=== PATIENT | male | born 1960 | race Caucasian/White ===

== ENCOUNTER → 2018-10-27 | Outpatient (CLI) | payer BC ==
--- NOTE | 2018-10-29 13:16 | MR ---
EXAMINATION TYPE: MR iac wo con DATE OF EXAM: 10/27/2018 COMPARISON: NONE HISTORY: Vertigo TECHNIQUE: Multiplanar, multisequence imaging of the brain and brainstem is performed without IV cont rast. Acoustic nerve disorder protocol. Exam performed without IV contrast as patient refused contras t injection. FINDINGS: Diffusion weighted images demonstrate no evidence of a recent infarct or other diffusion abnormality. There is no worrisome extra-axial fluid collection. There is mild ventricular and sulcal prominence. There are scattered foci of T2 hyperintensity seen throughout the white matter bilaterally. Approxima tely 10 lesions are identified predominantly in subcortical locations. Midline structures demonstrate normal morphology. The craniocervical junction appears within normal limits. Normal vascular flow voids are present. Mild mucosal thickening involving ethmoid sinuses sree aterally is present. Globes are intact bilaterally. There is increased fluid signal left mastoid air cells. Vestibulocochlear complexes are symmetric and felt within normal limits. IMPRESSION: Suboptimal study without IV contrast, possible left-sided mastoiditis, correlate clinical ly. Background mild diffuse cerebral atrophy and chronic small vessel ischemic change with mild chron ic ethmoid sinus disease noted.
== END | disposition home or self-care (01) ==
LOC: RADMRIMAIN 16:44
PROVIDERS: ATTEND Otolaryngology
DX: G31.9 Degenerative disease of nervous system, unspecified (principal); I67.82 Cerebral ischemia
CPT/HCPCS: 70551

== ENCOUNTER → 2020-11-28 | Outpatient (CLI) | payer BC ==
--- NOTE | 2020-11-28 11:11 | XR ---
EXAMINATION TYPE: XR chest 2V DATE OF EXAM: 11/28/2020 COMPARISON: NONE TECHNIQUE: PA and lateral views submitted. HISTORY: Prostate cancer FINDINGS: The lungs are clear and there is no pneumothorax, pleural effusion, or focal pneumonia. IMPRESSION: 1. No acute process.
--- NOTE | 2020-11-28 16:02 | NM ---
EXAMINATION TYPE: NM bone scan whole body DATE OF EXAM: 11/28/2020 COMPARISON: CT scan 11/28/2020 HISTORY: Prostate cancer Delayed whole-body scanning was performed following the injection of 23.5 mCi Tc 99m MDP. Images acq uired 3 hours post injection. FINDINGS: There is intense abnormal uptake involving both shoulders greater on the left. Recommend follow-up x- ray. Abnormal uptake involving the maxilla compatible with periodontal disease. Abnormal uptake involving the sternoclavicular joints likely post arthritic. Faint abnormal uptake throughout the thoracic spine and lower lumbar spine appears most likely degene rative in comparison to the CAT scan. Punctate tiny hyperdensities and sclerotic foci involving the l eft iliac bone, and a few lumbar segments are nonspecific and should be followed given the measure 1 to 2 mm. No corresponding abnormal uptake by bone scan. Abnormal uptake involving the knees greater on the left likely arthritic. IMPRESSION: 1. Abnormal uptake involving the shoulders bilaterally greater on the left. This appears out of propo rtion to the chest x-ray of 11/28/2020. Therefore, recommend dedicated shoulder series to assess for u nderlying metastases versus post arthritic changes. 2. There are multiple 1 to 2 mm sclerotic densities seen involving the pelvis and lower lumbar spine which are too small to characterize and may represent benign etiology. Given the patient's history of prostate cancer dictation be monitored on short-term basis. There is no corresponding bone scan abno rmality to these locations however due to their small size of a may not demonstrate uptake by bone sc an.
--- NOTE | 2020-11-28 20:46 | CT ---
EXAMINATION TYPE: CT abdomen pelvis w con DATE OF EXAM: 11/28/2020 COMPARISON: None HISTORY: Prostate Cancer CT DLP: 1806 mGycm Automated exposure control for dose reduction was used. TECHNIQUE: Helical acquisition of images was performed from the lung bases through the pelvis. CONTRAST: Performed with Oral Contrast and with IV Contrast, patient injected with 100 ml mL of Isovue 300. FINDINGS: LUNG BASES: No significant abnormality is appreciated. LIVER/GB: A 1.3 cm density in the posteromedial right lobe of the liver with some subtle peripheral n odular enhancement is indeterminate and may represent a hemangioma. No biliary ductal dilatation. Th e portal veins are patent. Gallbladder is unremarkable. PANCREAS: No significant abnormality is seen. SPLEEN: Not enlarged. Splenule. ADRENALS: No significant abnormality is seen. KIDNEYS: A 2.5 cm ovoid hypodensity arising from the posterior-inferior aspect of the left kidney artemio sures slightly higher than fluid attenuation and likely represents a cyst. No hydronephrosis. FREE AIR: No free air is visualized. RETROPERITONEAL ADENOPATHY: None visualized REPRODUCTIVE ORGANS: No significant abnormality is seen URINARY BLADDER: No significant abnormality is seen. PELVIC ADENOPATHY: None visualized. OSSEOUS STRUCTURES: No significant abnormality is seen. BOWEL: No significant abnormality is seen. OTHER: Lipomatous hypertrophy of the left inguinal canal. Small fat-containing intramuscular lipoma o f the left lateral abdominal musculature. Prostatomegaly. Diastases recti with a small fat-containing umbilical hernia. IMPRESSION: 1. No acute process in the abdomen or pelvis. 2. Secondary findings as above.
== END | disposition home or self-care (01) ==
LOC: RADNMMAIN 10:45
PROVIDERS: ATTEND Urology
DX: C61 Malignant neoplasm of prostate (principal); Z85.46 Personal history of malignant neoplasm of prostate
CPT/HCPCS: 71046; 74177; 78306; A9503; Q9967

== ENCOUNTER → 2020-12-24 | Outpatient (CLI) | payer BC ==
[2020-12-24 16:50] LABS: Basophils # (A) 0.1 k/uL (0-0.2); Basophils % (A) 0 %; Eosinophils # (A) 0.3 k/uL (0-0.7); Eosinophils % (A) 3 %; HGB 16.8 gm/dL (13.0-17.5); Lymphocytes # (A) 3.8 k/uL (1.0-4.8); Lymphocytes % (A) 29 %; MCHC 35.1 g/dL (31.0-37.0); MCV 94.2 fL (80.0-100.0); Mean Platelet Volume 7.4; Monocytes # (A) 0.6 k/uL (0-1.0); Monocytes % (A) 5 %; Neutrophils # (A) 7.8 k/uL (1.3-7.7); Neutrophils % (A) 61 %; Platelet Count 252 k/uL (150-450); RDW 12.6 % (11.5-15.5); WBC 12.8 k/uL (3.8-10.6)
[2020-12-24 16:54] LABS: Appearance,Urine Clear (Clear); Bilirubin,Urine Negative (Negative); Blood,Urine Negative (Negative); Color,Urine Yellow; Glucose,Urine (UA) Negative (Negative); Ketones,Urine Negative (Negative); Leukocyte Esterase,Urine Negative (Negative); Nitrite,Urine Negative (Negative); PH, Urine 5.5 (5.0-8.0); Protein,Urine Negative (Negative); Specific Gravity,Urine 1.022 (1.001-1.035); Urobilinogen,Urine <2.0 mg/dL (<2.0)
[2020-12-24 16:59] LABS: African American GFR (CKD) >90 (>60 ml/min/1.73 sqM); Anion Gap 11 mmol/L; Blood Urea Nitrogen 16 mg/dL (9-20); Carbon Dioxide 23 mmol/L (22-30); Chloride 107 mmol/L (98-107); Glucose 105 mg/dL (74-99); Non-African American GFR(CKD) 87 (>60 ml/min/1.73 sqM); Potassium 4.5 mmol/L (3.5-5.1); Sodium 141 mmol/L (137-145)
--- NOTE | 2020-12-25 08:27 | XR ---
EXAMINATION TYPE: XR chest 2V DATE OF EXAM: 12/24/2020 COMPARISON: 11/28/2020 TECHNIQUE: PA and lateral views submitted. HISTORY: Presurgical FINDINGS: The lungs are clear and there is no pneumothorax, pleural effusion, or focal pneumonia. Heart size normal. No overt failure. Hyperinflation of the lungs. Correlate for COPD. IMPRESSION: 1. No acute process.
== END | disposition home or self-care (01) ==
LOC: LABPAT 16:01
PROVIDERS: ATTEND Urology
DX: Z01.812 Encounter for preprocedural laboratory examination (principal); C61 Malignant neoplasm of prostate; R35.0 Frequency of micturition
CPT/HCPCS: 36415; 71046; 80048; 81003; 85025; 87086

== ENCOUNTER 2021-01-01 09:40 | Day surgery (SDC) | payer BC ==
[2020-12-29 08:30] VITALS: BMI 30.5
--- NOTE | 2020-12-31 18:42 | P.HPIHPCON ---
History of Present Illness H&P Date: 01/01/21 Chief Complaint: Prostate Cancer This is a 60-year-old male with history of [place] 7 (4+3) prostate cancer. Options of robotic prostatectomy, and radiation were discussed with him in detail. Discussed with him the risk and the benefit of each approach. He agreed to proceed with a robotic-assisted laparoscopic radical prostatectomy with pelvic lymph node dissection. Discussed with him the risk which includes but not limited to bleeding, infection, injury to nearby organs, which includes bladder, rectum, ureter, blood vessels and nerves. Discussed also with him risk from anesthesia which includes but not limited to heart attack, stroke, blood clots and even loss of life. He understood all the risk and agreed to proceed with robotic-assisted laparoscopic prostatectomy with pelvic lymph node dissection Consent for Procedure: I have explained the operation/procedure to the patient, including the risks, benefits, side effects, alternative therapies (including not receiving the proposed treatment or service), the likelihood of the patient achieving his/her goals, and potential recuperation problems for the procedure/sedation/analgesia, as well as any blood products, if indicated. I also explained to the patient the risks, benefits and side effects of the alternatives, as well as the risks related to not receiving the proposed procedure, care, treatment, or services. Past Medical History Past Medical History: Cancer, GERD/Reflux, Hypertension Additional Past Medical History / Comment(s): Current Prostate Cancer. History of Any Multi-Drug Resistant Organisms: None Reported Past Surgical History: No Surgical Hx Reported Additional Past Surgical History / Comment(s): [place] teeth extracted. Past Anesthesia/Blood Transfusion Reactions: No Reported Reaction Past Psychological History: No Psychological Hx Reported Smoking Status: Former smoker Past Alcohol Use History: Rare Additional Past Alcohol Use History / Comment(s): Quit smoking 20+ yrs ago. Past Drug Use History: None Reported - Past Family History Mother Family Medical History: No Reported History Medications and Allergies Home Medications Medication Instructions Recorded Confirmed Type Levocetirizine Dihydrochloride 5 mg PO HS 12/29/20 12/29/20 History [Xyzal] Losartan Potassium 100 mg PO QAM 12/29/20 12/29/20 History Magnesium 250 mg PO HS 12/29/20 12/29/20 History Motrin (Unknown Dose) 1 tab PO DIRECTED PRN 12/29/20 History Multivitamins, Thera [Multivitamin 1 tab PO DAILY 12/29/20 12/29/20 History (formulary)] Omeprazole 20 mg PO HS 12/29/20 12/29/20 History Allergies Allergy/AdvReac Type Severity Reaction Status Date / Time No Known Allergies Allergy Verified 12/29/20 08:22 Surgical - Exam - General well developed, well nourished - Respiratory normal expansion, normal respiratory effort - Psychiatric oriented to time, oriented to person, oriented to place Assessment and Plan Assessment: 60 yo hx of hallie 7 prostate cancer -OR for robotic prostatectomy and PLND
[~2021-01-01 09:40] MED LIST: DEXAMETHASONE SOD PHOSPHATE 4 MG/ML 1 ML VIAL IV ONE; HEPARIN SODIUM,PORCINE/PF 5,000 UNIT/0.5 ML SYRINGE SQ PRN; HYDROmorphone 0.5 MG/0.5 ML SYRINGE IVP PRN; ONDANSETRON 4 MG/2 ML VIAL IVP ONE
[2021-01-01] MEDS: LACTATED RINGERS 1,000 ML IV SCH ×2 (10:40→12:43)
[2021-01-01] MEDS ORDERED: MIDAZOLAM 2 MG/2 ML VIAL IV ONE (11:05)
[2021-01-01] MEDS ORDERED: fentaNYL (PF) 50 MCG/ML 2 ML AMP IV ONE (11:05)
--- NOTE | 2021-01-01 11:22 | P.ANPRN ---
Procedure Note - Anesthesia - Nerve Block Performed Bilateral Erector Spinae Single Time Out Performed: Yes Date of Procedure: 01/01/21 Procedure Start Time: 11:04 Procedure Stop Time: 11:12 Location of Patient: PreOp Indication: Requested by Surgeon (nini abernathy) Specifically requested for management of pain by DrShira: Boris Farfan Sedation Type: Sedate with meaningful contact maintained Preparation: Sterile Prep Position: Prone Needle Types: Pajunk Needle Gauge: 21 Ultrasound used to visualize needle placement: Yes Ultrasound used to observe medication spread: Yes Injectate: 0.5% Ropivacaine (see comment for volume) (15 ml +15 ml NS +2 mg Dexamethason per side) Blood Aspirated: No Pain Paresthesia on Injection Noted: No Resistance on Injection: Normal Image Stored and Saved: Yes Events: Uneventful and Well Tolerated
[2021-01-01] MEDS ORDERED: BUPIVACAINE (PF) 0.5% 30 ML VIAL SQ ONE ×2 (12:33)
[2021-01-01] MEDS ORDERED: KETOROLAC 15 MG/ML 1 ML VIAL ONE (12:38)
[2021-01-01] MEDS ORDERED: ROCURONIUM 10 MG/ML (5 ML VIAL) IV ONE (12:38)
[2021-01-01] MEDS ORDERED: LIDOCAINE 1% INJ 10MG/ML (20 ML MDV) ONE (12:38)
[2021-01-01] MEDS ORDERED: SUCCINYLCHOLINE CHLORIDE VIAL 200 MG/10 ML VIAL IV ONE (12:38)
[2021-01-01] MEDS ORDERED: SODIUM CHLORIDE 0.9% (PF) 10 ML VIAL ONE (12:38)
[2021-01-01] MEDS ORDERED: ROPIVACAINE 5 MG/ML 30 ML VIAL ONE (12:38)
[2021-01-01] MEDS ORDERED: GLYCOPYRROLATE 0.2 MG/ML 2 ML VIAL ONE (12:38)
[2021-01-01] MEDS ORDERED: DEXAMETHASONE SOD PHOSPHATE 4 MG/ML 1 ML VIAL ONE (12:38)
[2021-01-01] MEDS ORDERED: HEPARIN SODIUM,PORCINE 5,000 UNIT/ML 1 ML VIAL ONE (12:38)
[2021-01-01] MEDS ORDERED: MIDAZOLAM 2 MG/2 ML VIAL ONE (12:38)
[2021-01-01] MEDS ORDERED: HYDROmorphone (PF) 1 MG/ML ONE (12:38)
[2021-01-01] MEDS ORDERED: NEOSTIGMINE 1 MG/ML 10 ML VIAL ONE (12:38)
[2021-01-01] MEDS ORDERED: PROPOFOL 10 MG/ML 20 ML VIAL IV ONE (12:38)
[2021-01-01] MEDS ORDERED: fentaNYL (PF) 50 MCG/ML 2 ML AMP ONE (12:38)
[2021-01-01] MEDS ORDERED: HYDROcodone/APAP 5-325MG 1 EACH TAB PO PRN (12:40)
[2021-01-01] MEDS ORDERED: LACTATED RINGERS 1,000 ML IV ONE (17:00)
--- NOTE | 2021-01-01 17:17 | P.OP ---
Date of Procedure: 01/01/21 Preoperative Diagnosis: Prostate cancer Postoperative Diagnosis: Same Procedure(s) Performed: Robotic prostatectomy, pelvic lymph node dissection Implants: None Anesthesia: GHAZAL Surgeon: Boris Farfan Estimated Blood Loss (ml): 100 Pathology: other (Bilateral pelvic lymph nodes, prostate and seminal vesicles, right pelvic lymph node for frozen) Disposition: PACU Indications for Procedure: This is a 60-year-old male with history of [place] 7 (4+3) prostate cancer. Options of robotic prostatectomy, and radiation were discussed with him in detail. Discussed with him the risk and the benefit of each approach. He agreed to proceed with a robotic-assisted laparoscopic radical prostatectomy with pelvic lymph node dissection. Discussed with him the risk which includes but not limited to bleeding, infection, injury to nearby organs, which includes bladder, rectum, ureter, blood vessels and nerves. Discussed also with him risk from anesthesia which includes but not limited to heart attack, stroke, blood clots and even loss of life. He understood all the risk and agreed to proceed with robotic-assisted laparoscopic prostatectomy with pelvic lymph node dissectio Operative Findings: uncomplicated robotic prostatectomy Description of Procedure: After preoperative antibiotics were started, the patient was taken to the operating room. Anesthesia was induced and the patient was placed in supine position, with adequate padding of the pressure points, shoulders, back, legs and arms. He was then prepped and draped in the standard fashion. A critical pause was performed using two patient identifiers. A 16F najera catheter was placed to gravity drainage. A pneumo-peritoneum was created with placement of a Veress needle to 20 mm Hg without complication, and a 8 Fr trocar was placed above the umbillicus. Under direct vision a 8mm robotic ports was placed lateral to each rectus slightly below the camera port. The left iliac fossa 8mm port was placed. The right teacher assistant right iliac fossa 12mm port and right paramedian 5mm portwere placed. After the patient was placed in the trendelenberg position, the robot was then docked to the 8mm robotic ports and then each robotic arm and tower was checked in relation to the patient's legs and hands to avoid inadvertent compression. The peritoneal cavity was inspected. Patient had adhesion along the right lower quadrant was taken down sharply An inverted U-shaped incision began laterally to the left medial umbilical ligament and extended high across the midline to the right umbilical ligament. The limbs of the "U" extended to the level of the vasa on both sides. We next developed the preperitoneal space and the space of Retzius. Cautery was used to dissected the bladder away from the prostate. After the anterior bladder neck was incised and the bladder entered the the posterior bladder neck was exposed and the ureteral orifces identified. The posterior bladder neck was then incised and dissected away from the prostate. The vas and the seminal vesicles were now exposed and dissected to their insertions into the prostate and were not spared. Of note the right seminal vesicle was thickened, it was difficult to dissect. The posterior layer of the Denonvillier's fascia was incised to enter rito the plane between prostate and perirectal fat. Each lateral pedicle was controlled with clips and cautery for hemostasis. No nerve sparing was performed bilaterally. The puboprostatic ligament was incised where it inserted into the apex of the prostate and a plane between urethra and dorsal venous complex developed to expose the anterior urethral surface. The anterior wall of the urethra was transected with the cut setting a few millimeters distal to the apex of the prostate. The dorsal vein was ligated using 3-0 V lock bilateral obturator and external iliac lymph node packets were carefully dissected after careful visualization of the hypogastric artery and obturator nerve. Note patient had an enlarged right sided pelvic lymph node, this was sent to pathology came back negative for carcinoma. There was careful attention paid to hemostasis with judicious use of cautery. The urethrovesical anastomosis was performed . the posterior denovillers was reapproximated using 3-0 V lock. A 6 and 6 inch 3-0 V-Lock suture was used to anastomose the urethra and bladder, starting at the 6:00 posterior position. Mucosa was secured in every stitch, to ensure a mucosa to mucosa anastomosis. The stitch was regularly cinched and the anastomosis tightened. Care was taken to not violate the ureteral orifices. The Najera catheter was advanced, the bladder filled, and the anastomosis was tested, as described above. Anastomsis was watertight at 100 mL The periumbilical fascia was closed with 1-0-PDS suture in figure of 8 fashion. All ports were closed with a subcuticular 4-0 monocryl and Dermabond. Sponge, instrument, and needle counts were correct at the end of the case x2. All specimens including prostate and lymph nodes were sent to pathology for diagnosis and will be available in a week. The patient tolerated the surgery well and without complication. He awoke without difficulty and was taken to the recovery room in stable conditio
[2021-01-01] MEDS: D5-0.45% NACL WITH KCL 20MEQ/L 1,000 ML IV SCH (20:26)
[2021-01-01] MEDS: KETOROLAC 15 MG/ML 1 ML VIAL IVP SCH (20:27)
[2021-01-01] MEDS: HEPARIN SODIUM,PORCINE/PF 5,000 UNIT/0.5 ML SYRINGE SQ SCH (20:28)
[2021-01-01] MEDS ORDERED: LORATADINE 10 MG TAB PO SCH (21:00)
[2021-01-02] MEDS: KETOROLAC 15 MG/ML 1 ML VIAL IVP SCH ×3 (00:57→13:19)
[2021-01-02 01:22] VITALS: TEMP 98.6
[2021-01-02] MEDS: D5-0.45% NACL WITH KCL 20MEQ/L 1,000 ML IV SCH ×2 (02:24→03:45)
[2021-01-02] MEDS: HEPARIN SODIUM,PORCINE/PF 5,000 UNIT/0.5 ML SYRINGE SQ SCH ×2 (03:45→13:14)
[2021-01-02 07:33] VITALS: BP 136/76; PULSE 107; RESP 18
[2021-01-02] MEDS ORDERED: LOSARTAN 50 MG TAB PO SCH (09:00)
[2021-01-02] MEDS: LACTATED RINGERS 1,000 ML IV SCH (11:38)
== END 2021-01-02 13:53 | disposition home or self-care (01) ==
LOC: OR 09:40 → 4SSUR 17:23 → OR 01-02 13:53
PROVIDERS: ATTEND Urology
DX: C61 Malignant neoplasm of prostate (principal); K21.9 Gastro-esophageal reflux disease without esophagitis; I10 Essential (primary) hypertension; Z87.891 Personal history of nicotine dependence; Z79.899 Other long term (current) drug therapy
CPT/HCPCS: 38571; 94760; 64999; 76942; 86900; 86901; 86850; J2250; J0330; J1644 ×3; J1100; J2710; J0690; J2405; J2001; J3010; J1170; J2795; J1885 ×2; J2704; 88305; 88307; 88309; 88331

== ENCOUNTER 2021-02-25 10:03 | Emergency (ER) | payer BC ==
[2021-02-25 10:14] VITALS: TEMP 98.1
--- NOTE | 2021-02-25 10:39 | ED ---
General Adult HPI - General Chief complaint: Shortness of Breath Stated complaint: SOB, high heart rate Time Seen by Provider: 02/25/21 10:19 Source: patient Mode of arrival: ambulatory Limitations: no limitations - History of Present Illness Initial comments: Dictation was produced using [employer] dictation software. please excuse any grammatical, word or spelling errors. Chief Complaint: 60 yo male past medical history of prostate cancer status post prostatectomy several weeks ago presents to emergency department form urologist office for shortness of breath History of Present Illness: 60-year-old male he states that he's been short of breath for the last 1-1/2-2 weeks. States that his symptoms began spontaneously. He states that he short of breath especially worse with exertion. Patient has no history of blood clots. He has no lower extremity symptoms. No abdominal pain or chest pain. Denies any pleurisy. States that he is just short of breath. Does not take any anticoagulation therapy. Chart review shows that patient surgery was on 01/01/2021. He develop shortness of breath 2 weeks ago. The ROS documented in this emergency department record has been reviewed and confirmed by me. Those systems with pertinent positive or negative responses have been documented in the HPI. All other systems are other negative and/or noncontributory. PHYSICAL EXAM: General Impression: Alert and oriented x3, not in acute distress HEENT: Normocephalic atraumatic, extra-ocular movements intact, pupils equal and reactive to light bilaterally, mucous membranes moist. Cardiovascular: Heart regular rate and rhythm Chest: Able to complete full sentences, no retractions, no tachypnea Abdomen: abdomen soft, non-tender, non-distended, no organomegaly, surgical sites clean dry and intact Musculoskeletal: Pulses present and equal in all extremities, no peripheral edema Motor: no focal deficits noted Neurological: CN II-XII grossly intact, no focal motor or sensory deficits noted Skin: Intact with no visualized rashes Psych: Normal affect and mood ED course: 60 y Old male presents to emergency department for shortness of breath. Signs upon arrival shows heart rate of 118, rest vital signs within acceptable limits. Patient is not dyspneic at the bedside. Is not hypoxic. Patient is normotensive. Medications reviewed. Laboratory evaluation obtained. Mild leukocytosis 13.4. Hemoglobin 8.2 likely secondary to some hemoconcentration. Coag panel is negative. Metabolic panel is negative. Cardiac enzymes negative. Negative for brain natruretic peptide. Covid [address] angios the chest shows no acute processes. There is a granuloma. No pulmonary embolism. Patient reevaluated at the bedside. His tachycardia is significantly improved. It's well-appearing. He is agreeable for discharge. Advised follow-up with primary care doctor. Patient symptoms could be secondary to some mild dehydration. Patient advised to increase his hydration. EKG interpretation: Ventricular rate 1:15, sinus tachycardia,. 146, QRS 84, QTc 448. No TN prolongation, no QTC prolongation, no ST or T-wave changes noted. Overall, this EKG is unremarkable - Related Data Home Medications Medication Instructions Recorded Confirmed Levocetirizine Dihydrochloride 5 mg PO HS 12/29/20 02/25/21 [Xyzal] Losartan Potassium 100 mg PO DAILY 12/29/20 02/25/21 Multivitamins, Thera [Multivitamin 1 tab PO DAILY 12/29/20 02/25/21 (formulary)] Omeprazole 20 mg PO HS 12/29/20 02/25/21 Fluticasone Nasal Sage [Flonase 1 spr EA NOSTRIL DAILY 02/25/21 02/25/21 Nasal Sage] Fluticasone Nasal Sage [Flonase 2 spr EA NOSTRIL HS 02/25/21 02/25/21 Nasal Sage] Sodium Chloride [[place]] 1 spr EA NOSTRIL DAILY 02/25/21 02/25/21 Allergies Allergy/AdvReac Type Severity Reaction Status Date / Time No Known Allergies Allergy Verified 02/25/21 12:05 Review of Systems ROS Statement: Those systems with pertinent positive or pertinent negative responses have been documented in the HPI. ROS Other: All systems not noted in ROS Statement are negative. Past Medical History Past Medical History: Cancer Additional Past Medical History / Comment(s): Prostate CA. History of Any Multi-Drug Resistant Organisms: None Reported Past Surgical History: Prostate Surgery Past Psychological History: No Psychological Hx Reported Smoking Status: Never smoker Past Alcohol Use History: Occasional Past Drug Use History: None Reported - Past Family History Mother Family Medical History: GERD/Reflux, Hypertension, Osteoarthritis (OA) General Exam Limitations: no limitations Course Vital Signs 02/25/21 02/25/21 02/25/21 10:10 10:32 11:53 Temperature 98.1 F Pulse Rate 118 H 117 H 107 H Respiratory 20 16 19 Rate Blood Pressure 132/78 128/89 156/80 O2 Sat by Pulse 98 96 97 Oximetry Medical Decision Making - Lab Data Result diagrams: 02/25/21 10:49 02/25/21 11:08 Lab Results 02/25/21 02/25/21 02/25/21 Range/Units 10:49 10:49 10:49 WBC 13.4 H (3.8-10.6) k/uL RBC 5.47 (4.30-5.90) m/uL Hgb 18.2 H (13.0-17.5) gm/dL Hct 50.6 (39.0-53.0) % MCV 92.5 (80.0-100.0) fL MCH 33.3 (25.0-35.0) pg MCHC 36.0 (31.0-37.0) g/dL RDW 12.6 (11.5-15.5) % Plt Count 243 (150-450) k/uL MPV 8.1 Neutrophils % 69 % Lymphocytes % 22 % Monocytes % 6 % Eosinophils % 2 % Basophils % 1 % Neutrophils # 9.2 H (1.3-7.7) k/uL Lymphocytes # 2.9 (1.0-4.8) k/uL Monocytes # 0.8 (0-1.0) k/uL Eosinophils # 0.2 (0-0.7) k/uL Basophils # 0.1 (0-0.2) k/uL PT 10.0 (9.0-12.0) sec INR 0.9 (<1.2) APTT 23.7 (22.0-30.0) sec Sodium (137-145) mmol/L Potassium (3.5-5.1) mmol/L Chloride (98-107) mmol/L Carbon Dioxide (22-30) mmol/L Anion Gap mmol/L BUN (9-20) mg/dL Creatinine (0.66-1.25) mg/dL Est GFR (CKD-EPI)AfAm (>60 ml/min/1.73 sqM) Est GFR (CKD-EPI)NonAf (>60 ml/min/1.73 sqM) Glucose (74-99) mg/dL Calcium (8.4-10.2) mg/dL Magnesium (1.6-2.3) mg/dL Troponin I <0.012 (0.000-0.034) ng/mL NT-Pro-B Natriuret Pep pg/mL Coronavirus (PCR) (Not Detectd) 02/25/21 02/25/21 02/25/21 Range/Units 10:49 10:49 11:08 WBC (3.8-10.6) k/uL RBC (4.30-5.90) m/uL Hgb (13.0-17.5) gm/dL Hct (39.0-53.0) % MCV (80.0-100.0) fL MCH (25.0-35.0) pg MCHC (31.0-37.0) g/dL RDW (11.5-15.5) % Plt Count (150-450) k/uL MPV Neutrophils % % Lymphocytes % % Monocytes % % Eosinophils % % Basophils % % Neutrophils # (1.3-7.7) k/uL Lymphocytes # (1.0-4.8) k/uL Monocytes # (0-1.0) k/uL Eosinophils # (0-0.7) k/uL Basophils # (0-0.2) k/uL PT (9.0-12.0) sec INR (<1.2) APTT (22.0-30.0) sec Sodium 138 (137-145) mmol/L Potassium 4.2 (3.5-5.1) mmol/L Chloride 106 (98-107) mmol/L Carbon Dioxide 23 (22-30) mmol/L Anion Gap 9 mmol/L BUN 15 (9-20) mg/dL Creatinine 0.81 (0.66-1.25) mg/dL Est GFR (CKD-EPI)AfAm >90 (>60 ml/min/1.73 sqM) Est GFR (CKD-EPI)NonAf >90 (>60 ml/min/1.73 sqM) Glucose 117 H (74-99) mg/dL Calcium 9.9 (8.4-10.2) mg/dL Magnesium 2.2 (1.6-2.3) mg/dL Troponin I (0.000-0.034) ng/mL NT-Pro-B Natriuret Pep 29 pg/mL Coronavirus (PCR) Not Detected (Not Detectd) Disposition Clinical Impression: Dyspnea Disposition: HOME SELF-CARE Condition: Fair Instructions (If sedation given, give patient instructions): Dyspnea (ED) Is patient prescribed a controlled substance at d/c from ED?: No Referrals: Kyler Eastman MD [Primary Care Provider] - 1-2 days
[2021-02-25 11:18] LABS: INR 0.9 (<1.2); Partial Thromboplastin Time 23.7 sec (22.0-30.0)
[2021-02-25 11:22] LABS: African American GFR (CKD) >90 (>60 ml/min/1.73 sqM); Anion Gap 9 mmol/L; Blood Urea Nitrogen 15 mg/dL (9-20); Calcium 9.9 mg/dL (8.4-10.2); Carbon Dioxide 23 mmol/L (22-30); Chloride 106 mmol/L (98-107); Glucose 117 mg/dL (74-99); Magnesium 2.2 mg/dL (1.6-2.3); Non-African American GFR(CKD) >90 (>60 ml/min/1.73 sqM); Potassium 4.2 mmol/L (3.5-5.1); Sodium 138 mmol/L (137-145)
[2021-02-25 11:43] LABS: Basophils # (A) 0.1 k/uL (0-0.2); Basophils % (A) 1 %; Eosinophils # (A) 0.2 k/uL (0-0.7); Eosinophils % (A) 2 %; HCT 50.6 % (39.0-53.0); HGB 18.2 gm/dL (13.0-17.5); Lymphocytes # (A) 2.9 k/uL (1.0-4.8); Lymphocytes % (A) 22 %; MCH 33.3 pg (25.0-35.0); MCV 92.5 fL (80.0-100.0); Mean Platelet Volume 8.1; Monocytes # (A) 0.8 k/uL (0-1.0); Monocytes % (A) 6 %; Neutrophils # (A) 9.2 k/uL (1.3-7.7); Neutrophils % (A) 69 %; Platelet Count 243 k/uL (150-450); RBC 5.47 m/uL (4.30-5.90); RDW 12.6 % (11.5-15.5); WBC 13.4 k/uL (3.8-10.6)
[2021-02-25 11:54] VITALS: RESP 19
--- NOTE | 2021-02-25 12:06 | CT ---
EXAMINATION TYPE: CT angio chest DATE OF EXAM: 02/25/2021 COMPARISON: Chest x-ray 12/24/2020 HISTORY: SOB CT DLP: 819.3 mGycm Automated exposure control for dose reduction was used. CONTRAST: CTA scan of the thorax is performed with IV Contrast, patient injected with 100 mL of Isovue 370, pul monary embolism protocol. MIP images are created and reviewed. 3D reconstructed images are created on an independent workstation and reviewed. FINDINGS: Lipoma present along the lower right chest musculature, axial image 98 measuring 8.2 x 4.1 x 7 cm. Artifact is present on the exam which could limit evaluation. LUNGS: The lungs are grossly clear, there is no concerning parenchymal mass or nodule identified. Jose cified nodule right upper lobe axial image 37 anteriorly consistent with granuloma. Some dependent at electatic changes are suspected. There is no pleural effusion or pneumothorax seen. The tracheobron chial tree is patent. AORTA: No additional significant abnormality is seen. MEDIASTINUM: There is satisfactory enhancement of the pulmonary artery and its branches, there is no CT evidence for pulmonary embolism. There are no greater than 1 cm hilar or mediastinal lymph nodes. No pericardial effusion is seen. OTHER: There is a sclerotic focus within the anterior right fifth rib, axial image #83 and within th e proximal left humerus, axial image #14 which may represent bone islands, no abnormal uptake identif ied on bone scan, see bone scan report 11/28/2020. IMPRESSION: NO EVIDENT PULMONARY EMBOLISM WITHIN LIMITATIONS OF THE EXAM. ADDITIONAL FINDINGS ABOVE.
[2021-02-25 12:39] VITALS: BP 119/85; PULSE 99
== END 2021-02-25 12:50 | disposition home or self-care (01) ==
LOC: EC 10:03
DX: R06.00 Dyspnea, unspecified (principal); Z20.822 Contact with and (suspected) exposure to COVID-19; Z85.46 Personal history of malignant neoplasm of prostate; Z90.79 Acquired absence of other genital organ(s); Z83.79 Family history of other diseases of the digestive system; Z82.49 Family history of ischemic heart disease and other diseases of the circulatory system; Z79.899 Other long term (current) drug therapy
CPT/HCPCS: 36415; 93005; 83880; 80048; 83735; 84484; 85025; 85610; 85730; 87635; 71275; 99285; Q9967

== ENCOUNTER → 2022-03-19 | Outpatient (CLI) | payer BC ==
--- NOTE | 2022-03-22 08:22 | MR ---
EXAMINATION TYPE: MR Prostate wo/w con DATE OF EXAM: 03/19/2022 COMPARISON: None. IMAGE QUALITY: Satisfactory. INDICATION: Elevated PSA, CA, Hx of prostate removal PSA: 0.40 ng/ml on January 26, 2022 TECHNIQUE: Examination was performed using a 3T MRI without an endorectal coil. Multiparametric imaging was perf ormed with T2 mutliplanar sequences, axial diffusion weighted imaging and dynamic contrast enhanced i maging, utilizing 11 mL intravenous Gadavist gadolinium contrast. FINDINGS: Prostate gland is surgically absent. No obvious suspicious recurrent tissue at level of pro state bed. Seminal vesicles are surgically absent. Urinary bladder shows mild distention without abno rmal wall thickening or trabeculation. No free fluid in the pelvis. No suspicious pelvic adenopathy i s seen.. Visualized osseous structures are intact. No suspicious bowel dilatation. Small fat-containing left i nguinal hernia incidentally noted. IMPRESSION: Prostate surgically absent. No suspicious recurrent tissue or adenopathy seen. Highest Assessment Category: 1 MRI Stage: T1c N0 M0 based on review of pelvic images. False negative rates for MRI range from 5-20% depending on risk profile. Assessment Categories: 1 ? Very low (clinically significant cancer is highly unlikely to be present) 2 ? Low (clinically significant cancer is unlikely to be present) 3 ? Intermediate (the presence of clinically significant cancer is equivocal) 4 ? High (clinically significant cancer is likely to be present) 5 ? Very high (clinically significant cancer is highly likely to be present)
== END | disposition home or self-care (01) ==
LOC: RADMRIMAIN 05:48
PROVIDERS: ATTEND Urology
DX: R97.21 Rising PSA following treatment for malignant neoplasm of prostate (principal); Z90.79 Acquired absence of other genital organ(s); Z85.46 Personal history of malignant neoplasm of prostate
CPT/HCPCS: 72197; A9585

== ENCOUNTER → 2022-03-19 | Outpatient (CLI) | payer BC ==
--- NOTE | 2022-03-20 11:41 | NM ---
EXAMINATION TYPE: NM bone scan whole body DATE OF EXAM: 03/19/2022 2:19 PM CLINICAL INDICATION:Male, 61 years old with history of C61 prostate ca; COMPARISON: MRI prostate 03/19/2022 TECHNIQUE: Intravenous administration 25.5 mCi Tc 99m MDP followed by multiple scintigraphic images o f the appendicular and axial skeleton. Additionally, small field of view planar anterior and posterio r images of the thorax abdomen and pelvis. Images acquired 3.25 hours post injection. FINDINGS: No abnormal uptake is identified within the appendicular or axial skeleton to suggest metastatic dise ase. There is increased uptake within the bilateral shoulder, sternoclavicular, and sacroiliac joints con sistent with degenerative changes. No other photopenic areas or areas of increased activity are ident ified. Physiologic radiotracer activity is demonstrated in the kidneys and bladder. IMPRESSION: 1. Nothing to suggest metastatic disease.
== END | disposition home or self-care (01) ==
LOC: RADNMMAIN 09:57
PROVIDERS: ATTEND Urology
DX: C61 Malignant neoplasm of prostate (principal)
CPT/HCPCS: 78306; A9503

== ENCOUNTER → 2022-05-11 | Outpatient (CLI) | payer BC ==
--- NOTE | 2022-05-12 20:16 | MR ---
EXAMINATION TYPE: MR brain and iac wo/w con DATE OF EXAM: 05/11/2022 1:19 PM CLINICAL INDICATION:Male, 61 years old with history of H93.3X9, H93.19, H91.90; COMPARISON: None TECHNIQUE: Multi planar, multi sequence imaging was performed through the brain. Specialized thin s equences were obtained through the internal auditory canals. Pre-and post gadolinium sequences were obtained. MR contrast: IV Contrast: 11 cc Gadavist FINDINGS: The villalpando-white junctions, ventricular system, and cisterns appear unremarkable. Scattered foci of h igh T2 signal intensity are seen within the periventricular white matter. Midline structures show no abnormality. Diffusion-weighted imaging shows no evidence of restricted diffusion. The susceptibility weighted images do not reveal any evidence for micro-hemorrhage. The bone marrow signal is within normal limits. Paranasal sinuses and mastoid air cells: Mild scattered paranasal sinus disease. Visualized orbits: Orbital contents are intact. After administration of gadolinium, no abnormal enhancement is seen. The internal auditory canal sequences demonstrate no significant irregularity. The 7th cranial nerve s, 8 cranial nerves, and cerebellar pontine angles appear unremarkable. After the administration nathan olinium, no abnormal enhancement is seen within the internal auditory canals. IMPRESSION: 1. No evidence of intracranial mass nor acute/subacute CVA. 2. No evidence of internal auditory canal abnormality. 3. Nonspecific white matter changes, likely secondary to small vessel ischemic disease.
== END | disposition home or self-care (01) ==
LOC: RADMRIMAIN 12:14
PROVIDERS: ATTEND Otolaryngology
DX: R90.82 White matter disease, unspecified (principal); H93.3X2 Disorders of left acoustic nerve; H93.12 Tinnitus, left ear; H91.92 Unspecified hearing loss, left ear
CPT/HCPCS: 70553; A9585

== ENCOUNTER → 2022-05-14 | Outpatient (CLI) | payer BC ==
--- NOTE | 2022-05-16 08:04 | PE ---
EXAMINATION TYPE: PET CT fusion skull to thigh DATE OF EXAM: 05/14/2022 CLINICAL INDICATION:Male, 61 years old with history of C61; TECHNIQUE: Following the intravenous administration of 6.24 mCi of Ga-68 Illuccix (PSMA), whole bod y images are performed from the skull base to the midthigh. Images are reviewed on the computer in t he coronal, axial, and sagittal planes. Reconstructed rotating images are created on independent wor kstation and reviewed on the computer. A non-contrast CT is performed in conjunction with the PET s can. COMPARISON: CT 11/28/2020, PET/CT None, MRI prostate 03/19/2022, nuclear medicine bone scan 03/19/2022 FINDINGS: Mediastinal SUV mean is 0.4. Hepatic parenchyma SUV mean is 2.7. SKULL BASE AND NECK: No suspicious radiotracer activity. CHEST, MEDIASTINUM, AND HILAR REGION: No suspicious radiotracer activity. ABDOMEN AND PELVIS: No suspicious radiotracer activity. Prostate gland is surgically absent. There is no suspicious surgical bed abnormal radiotracer activit y. OSSEOUS STRUCTURES: No suspicious radiotracer activity. OTHER CT: Atherosclerosis of the arterial vasculature including the coronary arteries, fat-containing umbilical hernia. Bilateral fat-containing inguinal hernias. IMPRESSION: No evidence for metastatic prostate cancer. No abnormal radiotracer activity.
== END | disposition home or self-care (01) ==
LOC: RADPETMAIN 07:39
PROVIDERS: ATTEND Urology
DX: C61 Malignant neoplasm of prostate (principal)
CPT/HCPCS: 78815; A9596